=== PATIENT | male | born 1950 | race Caucasian/White ===

== ENCOUNTER 2020-11-19 20:00 | Inpatient (IN) | payer MEDICARE, MEDICAID, SELFPAY ==
[2020-11-19] VITALS (7 sets, daily range): BP systolic 123–177; BP diastolic 63–84; PULSE 111–140; RESP 18–25; TEMP 38.1–40.1; O2SAT 94–96; BMI 25.1
--- NOTE | ~2020-11-19 | XR_ITS ---
EXAMINATION: XR CHEST CLINICAL INFORMATION: Altered mental status. COMPARISON: Chest radiograph dated from 06/02/2019. TECHNIQUE: AP view of the chest was obtained. FINDINGS: Unchanged appearance of the cardiomediastinal silhouette. There are increased interstitial markings and multifocal patchy opacities, more prominent on the left lung. There is a small left-sided pleural effusion. No pneumothorax. No acute osseous findings. Chronic left-sided rib fractures. Redemonstration of calcified loose bodies overlying the right shoulder. XR/XR chest 1V IMPRESSION: Increased interstitial markings with superimposed patchy opacities bilaterally, more prominent in the left lung. These findings are worrisome for a multifocal infection. Correlate clinically and follow-up to ensure resolution. Small left pleural effusion.
--- NOTE | 2020-11-19 20:17 | ED.GENADULT ---
HPI - General Adult General Chief complaint: Fever Stated complaint: fever Time Seen by Provider: 11/19/20 20:17 Source: EMS and RN notes reviewed Mode of arrival: EMS History of Present Illness HPI narrative: Patient is 70 years old from [facility] with significant past medical history of hypertension, diabetes, traumatic brain injury, severe dysarthria, COPD, dysphagia, schizophrenia and osteoarthritis with history of recurrent aspiration pneumonia said from senior care this time for increased chills and a temperature of 100.7 at senior care was more confused and lethargic. When arrived patient was talking only few words more lethargic rectal temperature of 104 degrees Related Data Home Medications Medication Instructions Recorded Confirmed acetaminophen 500 mg tablet 500 mg PO Q6H PRN 11/19/20 11/19/20 acetaminophen 650 mg tablet 650 mg PO Q4H PRN 11/19/20 11/19/20 amlodipine 5 mg tablet 5 mg PO DAILY 11/19/20 11/19/20 chlorpromazine 25 mg tablet 25 mg PO BID 11/19/20 11/19/20 diazepam 2 mg tablet 2 mg PO BID 11/19/20 11/19/20 diazepam 5 mg tablet 5 mg PO BID 11/19/20 11/19/20 divalproex 500 mg tablet,extended 1,000 mg PO BID 11/19/20 11/19/20 release 24 hr ferrous sulfate 325 mg (65 mg 325 mg PO BID 11/19/20 11/19/20 iron) tablet folic acid 1 mg tablet 1 mg PO DAILY 11/19/20 11/19/20 gemfibrozil 600 mg tablet 600 mg PO BID 11/19/20 11/19/20 hydroxyzine HCl 25 mg tablet 25 mg PO QID 11/19/20 11/19/20 lactulose 60 ml QID 11/19/20 11/19/20 loperamide 2 mg capsule 2 mg PO Q6H PRN 11/19/20 11/19/20 lorazepam 0.5 ml IM QID PRN 11/19/20 11/19/20 lorazepam 1 mg tablet 1 mg PO TID PRN 11/19/20 11/19/20 metformin 1,000 mg tablet 1,000 mg PO BID 11/19/20 11/19/20 miconazole nitrate 2 % topical 1 appl TOPICAL BID 11/19/20 11/19/20 cream sennosides 8.6 mg tablet (senna) 8.6 mg PO DAILY PRN 11/19/20 11/19/20 thiamine mononitrate (vit B1) 100 100 mg PO DAILY 11/19/20 11/19/20 mg tablet (Vitamin B-1 (mononitrate)) ziprasidone HCl 60 mg capsule 60 mg PO BID 11/19/20 11/19/20 (Geodon) Allergies Allergy/AdvReac Type Severity Reaction Status Date / Time No Known Allergies Allergy Verified 11/19/20 20:31 [No Known Allergies*] Review of Systems Review of Systems: Yes Unobtainable due to [facility] Social History Social History Alcohol intake: never Patient Tobacco Use Status: Never used Tobacco Advance Directives: No Physical Exam Vital Signs: Vital Signs: Last Vital Signs Temp 100.5 F H 11/19/20 23:37 Pulse 104 H 11/20/20 00:28 Resp 18 11/20/20 00:28 BP 129/71 11/20/20 00:28 Pulse Ox 96 11/20/20 00:28 Body Mass Index 25.1 Appearance: Alert and awake. No acute distress. Eyes: No pallor/ icterus ENT: Pharynx normal. Oral Mucosa moist Neck: Normal inspection. Neck supple. CVS: Normal heart rate and rhythm. Pulses normal. Abdomen: Soft and nontender. Bowel sounds are present, no mass palpable, no CVA tenderness Skin: Skin warm and dry. Normal skin color. Normal skin turgor. Extremities: No lower extremity edema. No calf tenderness Neuro: Oriented X 1-2 speaking only 1 or 2 words difficult to understand. No motor deficit. No sensory deficit.No cerebellar signs , cranial nerves II-XII intact Medical Decision Making MDM Narrative Medical decision making narrative: Patient with recurrent pneumonia likely aspiration pneumonia , WBC count normal will start patient on Zosyn repeat COVID PCR Lab Data Lab results reviewed: Yes I reviewed the patient's lab results. Result diagrams: 11/19/20 20:47 11/19/20 20:47 Labs: Lab Results 11/19/20 11/19/20 11/19/20 Range/Units 20:24 20:37 20:37 WBC (4.8-10.8) X10*3/uL RBC (4.60-5.80) X10*6/uL Hgb (14.0-18.0) g/dl Hct (42-52) % MCV (80-98) fL MCH (27.0-33.0) pg MCHC (31.0-36.0) g/dl RDW (11.0-16.0) % Plt Count (160-400) X10*3/uL MPV (9.4-12.4) fL Immature Gran % (Auto) (0.0-0.4) % Neut % (Auto) (45-73) % Lymph % (Auto) (20-40) % [place] % (Auto) (2-11) % Eos % (Auto) (0-4) % Baso % (Auto) (0-2) % Lymph # (Auto) (1.2-4.9) X10*3/uL [place] # (Auto) (0.1-1.2) X10*3/uL Eos # (Auto) (0.0-0.4) X10*3/uL Baso # (Auto) (0.0-0.2) X10*3/uL Abs Immat Gran (auto) (0.00-0.03) X10*3/uL Absolute Neuts (auto) (2.0-8.3) X10*3/uL Absolute Nucleated RBC (0.0-0.012) X10*3/uL Nucleated RBC % (auto) (0.0-0.2) /100WBC Sodium (135-145) mmol/L Potassium (3.3-5.1) mmol/L Chloride (96-108) mmol/L Carbon Dioxide (22-29) mmol/L Anion Gap (12-20) BUN (9-16) mg/dL Creatinine (0.5-1.4) mg/dL Estim Creat Clear Calc Estimated GFR POC Glucose 225 H (60-115) mg/dL Random Glucose (60-115) mg/dL Lactic Acid (0.5-2.0) mmol/L Calcium (8.4-10.2) mg/dL Total Bilirubin (0.0-1.0) mg/dL AST (5-37) U/L ALT (0-40) U/L Alkaline Phosphatase (39-117) U/L Total Protein (6.5-8.0) g/dL Albumin (3.5-5.0) g/dL Lipase (8-78) U/L Urine Color YELLOW Urine Appearance CLEAR Urine pH 6.0 (5.0-8.0) Ur Specific [place] 1.010 (1.005-1.025) Urine Protein NEG (NEG-TRACE) MG/DL Urine Glucose (UA) NEG (NEG) MG/DL Urine Ketones 5 (NEG) MG/DL Urine Blood NEG (NEG) Urine Nitrite NEG (NEG) Ur Leukocyte Esterase NEG (NEG) COVID-19 (AN) Negative (Negative) COVID-19 Clin Com See Note 11/19/20 11/19/20 11/19/20 Range/Units 20:47 20:47 20:47 WBC 8.9 (4.8-10.8) X10*3/uL RBC 3.75 L (4.60-5.80) X10*6/uL Hgb 10.2 L (14.0-18.0) g/dl Hct 30.8 L (42-52) % MCV 82.1 (80-98) fL MCH 27.2 (27.0-33.0) pg MCHC 33.1 (31.0-36.0) g/dl RDW 13.6 (11.0-16.0) % Plt Count 233 (160-400) X10*3/uL MPV 10.6 (9.4-12.4) fL Immature Gran % (Auto) 0.3 (0.0-0.4) % Neut % (Auto) 82.8 H (45-73) % Lymph % (Auto) 7.6 L (20-40) % [place] % (Auto) 8.1 (2-11) % Eos % (Auto) 1.1 (0-4) % Baso % (Auto) 0.1 (0-2) % Lymph # (Auto) 0.7 L (1.2-4.9) X10*3/uL [place] # (Auto) 0.7 (0.1-1.2) X10*3/uL Eos # (Auto) 0.1 (0.0-0.4) X10*3/uL Baso # (Auto) 0.0 (0.0-0.2) X10*3/uL Abs Immat Gran (auto) 0.03 (0.00-0.03) X10*3/uL Absolute Neuts (auto) 7.4 (2.0-8.3) X10*3/uL Absolute Nucleated RBC 0.000 (0.0-0.012) X10*3/uL Nucleated RBC % (auto) 0.0 (0.0-0.2) /100WBC Sodium 140 (135-145) mmol/L Potassium 4.7 (3.3-5.1) mmol/L Chloride 106 (96-108) mmol/L Carbon Dioxide 25 (22-29) mmol/L Anion Gap 14 (12-20) BUN 14 (9-16) mg/dL Creatinine 1.21 (0.5-1.4) mg/dL Estim Creat Clear Calc 58.6 Estimated GFR 59 POC Glucose (60-115) mg/dL Random Glucose 228 H (60-115) mg/dL Lactic Acid 2.4 H* (0.5-2.0) mmol/L Calcium 8.9 (8.4-10.2) mg/dL Total Bilirubin 0.4 (0.0-1.0) mg/dL AST 10 (5-37) U/L ALT 6 (0-40) U/L Alkaline Phosphatase 149 H (39-117) U/L Total Protein 7.8 (6.5-8.0) g/dL Albumin 3.9 (3.5-5.0) g/dL Lipase 6 L (8-78) U/L Urine Color Urine Appearance Urine pH (5.0-8.0) Ur Specific [place] (1.005-1.025) Urine Protein (NEG-TRACE) MG/DL Urine Glucose (UA) (NEG) MG/DL Urine Ketones (NEG) MG/DL Urine Blood (NEG) Urine Nitrite (NEG) Ur Leukocyte Esterase (NEG) COVID-19 (AN) (Negative) COVID-19 Clin Com Discharge Plan Discharge Clinical Impression: Multifocal pneumonia Patient Disposition: Admitted As Inpatient
--- NOTE | 2020-11-19 20:26 | ECG_ITS ---
Test Reason : SEPTIC Blood Pressure : / mmHG Vent. Rate : 131 BPM Atrial Rate : 131 BPM P-R Int : 144 ms QRS Dur : 076 ms QT Int : 282 ms P-R-T Axes : 069 063 082 degrees QTc Int : 416 ms Sinus tachycardia RSR' or QR pattern in V1 suggests right ventricular conduction delay Nonspecific T wave abnormality Abnormal ECG When compared with ECG of 30-MAY-2019 10:45, Vent. rate has increased BY 44 BPM Nonspecific T wave abnormality, worse in Lateral leads Referred By: Manpreet Plaza Electronically Signed By:ROBBIE YEPEZ MD
[2020-11-19] MEDS: 0.9 % Sodium Chloride 3,000 ML 3000 ML IV (20:29)
[2020-11-19 20:44] LABS: Appearance Urine CLEAR; Color Urine YELLOW; Glucose Urine UA NEG (NEG); Leukocyte Esterase Urine NEG (NEG); Nitrite Urine NEG (NEG); Urine Blood NEG (NEG); Urine Ketones 5 MG/DL (NEG); Urine Protein NEG (NEG-TRACE)
[2020-11-19] MEDS: Piperacillin Sodium/Tazobactam 3.375 GM in 0.9 % Sodium Chloride 50 ML IV (20:53)
[2020-11-19] MEDS: Acetaminophen Supp 650 MG SUPP.RECT PR (20:53)
[2020-11-19 20:57] LABS: Glucose, Whole Blood 225 mg/dL (60-115)
[2020-11-19 20:58] LABS: MANUAL DIFF FLAG NO
[2020-11-19 20:59] LABS: COVID-19 Test Negative (Negative)
[2020-11-19 21:02] LABS: Basophils Percent Auto 0.1 % (0-2); Eosinophils Absolute Auto 0.1 X10*3/uL (0.0-0.4); Eosinophils Percent Auto 1.1 % (0-4); Hematocrit 30.8 % (42-52); Hemoglobin 10.2 g/dl (14.0-18.0); Imm Gran Abs Auto 0.03 X10*3/uL (0.00-0.03); Imm Gran Pct Auto 0.3 % (0.0-0.4); Lymphocytes Absolute Auto 0.7 X10*3/uL (1.2-4.9); Lymphocytes Percent Auto 7.6 % (20-40); Mean Corpuscular HGB Conc 33.1 g/dl (31.0-36.0); Mean Corpuscular Hemoglobin 27.2 pg (27.0-33.0); Mean Corpuscular Volume 82.1 fL (80-98); Mean Platelet Volume 10.6 fL (9.4-12.4); Monocytes Absolute Auto 0.7 X10*3/uL (0.1-1.2); Monocytes Percent Auto 8.1 % (2-11); Neutrophils Absolute Auto 7.4 X10*3/uL (2.0-8.3); Neutrophils Percent Auto 82.8 % (45-73); Platelet Count 233 X10*3/uL (160-400); Red Blood Count 3.75 X10*6/uL (4.60-5.80); Red Cell Distribution Width 13.6 % (11.0-16.0); White Blood Count 8.9 X10*3/uL (4.8-10.8)
[2020-11-19 21:13] LABS: Alanine Aminotransferase 6 U/L (0-40); Albumin Level 3.9 g/dL (3.5-5.0); Alkaline Phosphatase 149 U/L (39-117); Anion Gap 14 (12-20); Aspartate Amino Transferase 10 U/L (5-37); Bilirubin Total 0.4 mg/dL (0.0-1.0); Blood Urea Nitrogen 14 mg/dL (9-16); Calcium 8.9 mg/dL (8.4-10.2); Carbon Dioxide 25 mmol/L (22-29); Chloride 106 mmol/L (96-108); Creatinine Clr Calc Pharmacy 58.6; Estimated Glomerular Filt Rate 59; Glucose Random 228 mg/dL (60-115); Lipase 6 U/L (8-78); Potassium 4.7 mmol/L (3.3-5.1); Sodium 140 mmol/L (135-145); Total Protein 7.8 g/dL (6.5-8.0)
[2020-11-19 21:29] LABS: Lactic Acid 2.4 mmol/L (0.5-2.0)
--- NOTE | 2020-11-19 22:20 | PM.IMHP ---
History of Present Illness Date of Service: 11/19/20 Chief Complaint: Fever 70-year-old male with a past medical history of hypertension, hyperlipidemia, diabetes, history of traumatic brain injury, severe dysarthria, COPD, history of dysphagia, COPD, history of schizophrenia, osteoarthritis, recurrent admissions to the hospital for pneumonia; presented to the hospital today with a chief complaint of fever. Patient is a poor historian secondary to his baseline mild confusion /dysarthria. Spoke to the patient's RN Salvatore at [facility]-who reports that patient has been shaky tremulous and febrile today; slightly more confused than his baseline; hence sent him to the hospital for further evaluation. Reports that patient eats food okay-eats mechanical food and nectar thick liquids. Denies any cough or sputum production complains Denies patient complaining of any chest pain abdominal pain nausea vomiting diarrhea. Denies any urinary complaints. Reports that patient able to walk but usually in the bed; has mild chronic back pain. Denies any falls or head trauma. Review of all other systems is negative except mentioned above ER course: Per ER team patient chest x-ray showed possible multifocal pneumonia; febrile to 104 F; tachycardic; mildly tachypneic but saturating well on room air; given IV antibiotics. Admitted to the hospital for further management Past medical history: 1. Schizophrenia. 2. Diabetes mellitus. 3. Hypertension. 4. Hyperlipidemia. 5. History of TBI. 6. History of severe dysarthria. 7. COPD. 8. History of dysphasia. 9. Chronic anemia. 10. Multiple admissions for recurrent pneumonia. 11. Emphysema 12. Osteoarthritis 13. dysphagia 14. Anemia Past surgical history: Cataracts PMFSH Pertinent family history: reviewed; pt unable to provide. Social History Alcohol intake: never Patient Tobacco Use Status: Never used Tobacco Advance Directives: No Narrative: PMH:1. Schizophrenia. 2. Diabetes mellitus. 3. Hypertension. 4. Hyperlipidemia. 5. History of TBI. 6. History of severe dysarthria. 7. COPD. 8. History of dysphasia. 9. Chronic anemia. 10. Multiple admissions for recurrent pneumonia. 11. Emphysema 12. Osteoarthritis 13. dysphagia 14. Anemia Meds Allergies Allergy/AdvReac Type Severity Reaction Status Date / Time No Known Allergies Allergy Verified 11/19/20 20:31 [No Known Allergies*] Active Medications: Current Medications Sodium Chloride (0.9 % Sodium Chloride Flush 3 Ml Syringe) 3 ml IVFLUSH QSHIFT LINN Physical Exam Vital Signs and Narrative: Vital Signs: Last Vital Signs Temp 104.1 F H 11/19/20 20:38 Pulse 115 H 11/19/20 21:40 Resp 25 H 11/19/20 21:40 BP 153/69 H 11/19/20 21:40 Pulse Ox 95 11/19/20 21:40 Body Mass Index 25.1 Gen: Appears be in no acute distress; breathing comfortably. Noted to be tachycardic on monitor. HEENT: NCAT, Moist mucosa. Pulmonary: Course breath sounds, fair air entry CVS: Normal S1-S2 Abdomen: BS+, Soft, Nontender Extremities: Warm well perfused Neuro: Alert and awake. Results Labs CBC and Chem 7: 11/19/20 20:47 11/19/20 20:47 Labs: Laboratory Results - last 24 hr 11/19/20 11/19/20 11/19/20 20:24 20:37 20:37 MCV MCH MCHC RDW Plt Count MPV Immature Gran % (Auto) Neut % (Auto) Lymph % (Auto) [place] % (Auto) Eos % (Auto) Baso % (Auto) Lymph # (Auto) [place] # (Auto) Eos # (Auto) Baso # (Auto) Abs Immat Gran (auto) Absolute Neuts (auto) Absolute Nucleated RBC Nucleated RBC % (auto) Anion Gap Estim Creat Clear Calc Estimated GFR POC Glucose 225 H Random Glucose Lactic Acid Calcium Total Bilirubin AST ALT Alkaline Phosphatase Total Protein Albumin Lipase Urine Color YELLOW Urine Appearance CLEAR Urine pH 6.0 Ur Specific [place] 1.010 Urine Protein NEG Urine Glucose (UA) NEG Urine Ketones 5 Urine Blood NEG Urine Nitrite NEG Ur Leukocyte Esterase NEG COVID-19 (AN) Negative COVID-19 Clin Com See Note 11/19/20 11/19/20 11/19/20 20:47 20:47 20:47 MCV 82.1 MCH 27.2 MCHC 33.1 RDW 13.6 Plt Count 233 MPV 10.6 Immature Gran % (Auto) 0.3 Neut % (Auto) 82.8 H Lymph % (Auto) 7.6 L [place] % (Auto) 8.1 Eos % (Auto) 1.1 Baso % (Auto) 0.1 Lymph # (Auto) 0.7 L [place] # (Auto) 0.7 Eos # (Auto) 0.1 Baso # (Auto) 0.0 Abs Immat Gran (auto) 0.03 Absolute Neuts (auto) 7.4 Absolute Nucleated RBC 0.000 Nucleated RBC % (auto) 0.0 Anion Gap 14 Estim Creat Clear Calc 58.6 Estimated GFR 59 POC Glucose Random Glucose 228 H Lactic Acid 2.4 H* Calcium 8.9 Total Bilirubin 0.4 AST 10 ALT 6 Alkaline Phosphatase 149 H Total Protein 7.8 Albumin 3.9 Lipase 6 L Urine Color Urine Appearance Urine pH Ur Specific [place] Urine Protein Urine Glucose (UA) Urine Ketones Urine Blood Urine Nitrite Ur Leukocyte Esterase COVID-19 (AN) COVID-19 Clin Com Imaging Radiologist's Impressions: Impressions Chest X-Ray 11/19/20 20:26 IMPRESSION: Increased interstitial markings with superimposed patchy opacities bilaterally, more prominent in the left lung. These findings are worrisome for a multifocal infection. Correlate clinically and follow-up to ensure resolution. Small left pleural effusion. Assessment and Plan (1) Multifocal pneumonia: Status: Acute (2) Diabetes: Status: Acute (3) HTN (hypertension): Status: Acute 70-year-old male with a past medical history of hypertension, hyperlipidemia, diabetes, history of traumatic brain injury, severe dysarthria, COPD, history of dysphagia, COPD, history of schizophrenia, osteoarthritis, recurrent admissions to the hospital for pneumonia; presented to the hospital today with a chief complaint of fever. Noted to have pneumonia. Admitted for further management. Multifocal pneumonia: Patient had prior admissions for recurrent pneumonia. Patient has history of dysphagia-concern for aspiration. Continue IV vancomycin and Zosyn. NPO Speech and swallow eval ID consult for further Recommendations Aspiration precautions COVID-19 negative Supplemental oxygen p.r.n. DuoNebs p.r.n. Hypertension/hyperlipidemia: Continue home medications. Diabetes: Insulin sliding scale Dysphagia: Speech and swallow consult as mentioned. COPD: Stable. DuoNebs p.r.n. History of schizophrenia: Continue home medications. DVT prophylaxis: SCD boots Code status: Full code. Confirmed with the [facility] staff. I also called the patient's guardian deviated-unable to reach-left voice message. Quality Stroke Does the patient have a stroke diagnosis?: No VTE Prior VTE?: No VTE Risk Level:: Medical - moderate - high VTE Device Contraindication: N/A - Device Ordered VTE Drug Contraindication: Treatment Not Indicated
[2020-11-19 22:56] LABS: Reflex Lactate? Lactic Acid Added
[2020-11-19 23:23] LABS: Influenza A PCR NEGATIVE (Negative); Influenza B PCR NEGATIVE (Negative); Resp Syncy Virus RNA Qual PCR NEGATIVE (Negative); SARS COV2 PCR INHOUSE NEGATIVE (Negative)
[2020-11-19] MEDS: Ibuprofen Oral Susp 200 MG/10 ML ORAL.SUSP 600 MG PO (23:39)
[2020-11-19] MEDS: vancomycin HCL 1,250 MG in 0.9 % Sodium Chloride 250 ML 166.67 MG IV (23:43)
[2020-11-19] MEDS: 0.9 % Sodium Chloride 1,000 ML 75 ML IVCONT (23:44)
[2020-11-19 23:48] LABS: ~Lactic Acid-LAB USE ONLY 1.5 mmol/L (0.5-2.0)
[2020-11-20] VITALS (7 sets, daily range): BP systolic 129–165; BP diastolic 66–81; PULSE 70–104; RESP 13–18; TEMP 35.8–37.3; O2SAT 95–98; BMI 25.9
[2020-11-20] MEDS: 0.9 % Sodium Chloride Flush 3 ML SYRINGE IVFLUSH ×2 (00:26→07:50)
--- NOTE | 2020-11-20 00:59 | PC.NURSE ---
Pt remains alert and confused, per baseline mental status. Pt more calm then when he first came into ER. Pt follows commands without difficulties. Pt turned and positioned. Skin intact, buttock clean dry and intact. Rectal temps checked routinely and noted to be trending down to WNL, MD aware. Pt voiding multiple times this shift. 2 IV's remain intact. Heart rate noted to be trending down WNL, MD aware. BP remains WNL. Pt tolerated IV abx well. Pt denies pain, N/V. Pt ate soft bite sized diet per MD orders and tolerated well, no coughing or choking noted with swallowing. Pt received PO swallow test by RN this shift and tolerated well. Pt O2 sat remains WNL on room air. Pt resting asleep in stretcher at this time, will continue to monitor.
[2020-11-20] MEDS: Piperacillin Sodium/Tazobactam 3.375 GM in 0.9 % Sodium Chloride 50 ML IV ×4 (03:47→20:52)
--- NOTE | 2020-11-20 06:35 | PC.NURSE ---
Pt alert and confused, per baseline mental status. Pt cooperative but noted to be restless intermittently throughout shift. Pt remains afebrile at this time. 2 IV intact. Vitals stable. Pt tele monitor NSR. Pt voided multiple times throughout shift, pt cleaned and linens changed. Skin remains intact. Pt resting in stretcher without complaints at this time, will continue to monitor.
[2020-11-20 07:15] LABS: MANUAL DIFF FLAG NO
[2020-11-20 07:21] LABS: Basophils Percent Auto 0.3 % (0-2); Eosinophils Absolute Auto 0.1 X10*3/uL (0.0-0.4); Eosinophils Percent Auto 0.6 % (0-4); Hematocrit 32.6 % (42-52); Hemoglobin 10.7 g/dl (14.0-18.0); Imm Gran Abs Auto 0.05 X10*3/uL (0.00-0.03); Imm Gran Pct Auto 0.4 % (0.0-0.4); Lymphocytes Absolute Auto 1.6 X10*3/uL (1.2-4.9); Lymphocytes Percent Auto 14.1 % (20-40); Mean Corpuscular HGB Conc 32.8 g/dl (31.0-36.0); Mean Corpuscular Volume 82.1 fL (80-98); Mean Platelet Volume 10.6 fL (9.4-12.4); Monocytes Absolute Auto 0.8 X10*3/uL (0.1-1.2); Neutrophils Percent Auto 77.6 % (45-73); Platelet Count 249 X10*3/uL (160-400); Red Blood Count 3.97 X10*6/uL (4.60-5.80); Red Cell Distribution Width 13.7 % (11.0-16.0); White Blood Count 11.6 X10*3/uL (4.8-10.8)
[2020-11-20 07:32] LABS: Glucose, Whole Blood 115 mg/dL (60-115)
--- NOTE | 2020-11-20 07:42 | PC.NURSE ---
pt a/o x 3 with slight confusion. pt is npo until swallow eval.
--- NOTE | 2020-11-20 07:46 | PHA.MEDREC ---
Pharmacy Consult ? Medication Reconciliation Pharmacy has completed the medication reconciliation. There are no remarkable issues for provider's attention. Patient came from [facility] with a medication list. Eleanor Mahajan, NaD
--- NOTE | 2020-11-20 07:58 | PC.NURSE ---
complete bed change, [place] cath placed,.
[2020-11-20 08:17] LABS: Anion Gap 15 (12-20); Blood Urea Nitrogen 12 mg/dL (9-16); Carbon Dioxide 24 mmol/L (22-29); Chloride 110 mmol/L (96-108); Creatinine Clr Calc Pharmacy 81.5; Estimated Glomerular Filt Rate > 60; Glucose Random 121 mg/dL (60-115); Potassium 4.9 mmol/L (3.3-5.1); Sodium 144 mmol/L (135-145)
[2020-11-20] MEDS: diazePAM 2 MG TABLET PO (08:48)
[2020-11-20] MEDS: Divalproex Sodium ER 500 MG TAB.ER.24H 1000 MG PO (08:48)
[2020-11-20] MEDS: Thiamine HCL 100 MG TABLET PO (08:48)
[2020-11-20] MEDS: hydrOXYzine HCL 25 MG TABLET PO ×3 (08:48→17:42)
[2020-11-20] MEDS: diazePAM 5 MG TABLET PO (08:48)
[2020-11-20] MEDS: Folic Acid 1 MG TABLET PO (08:48)
[2020-11-20] MEDS: metFORMIN HCl 1,000 MG TABLET 1000 MG PO (08:48)
[2020-11-20] MEDS: Ziprasidone 60 MG CAPSULE PO (09:08)
[2020-11-20] MEDS: gemfibroziL 600 MG TABLET PO (09:08)
[2020-11-20] MEDS: chlorproMAZINE HCl 25 MG TABLET PO (09:08)
--- NOTE | 2020-11-20 09:53 | MHC.CM.PN ---
Addendum entered by Corrie Sampson 11/20/20 13:15: Patient received Pfizer Covid vaccines on 02/14 and 03/07. Original Note: Patient is admitted but boarding in the ER. Patient has a guardian. Spoke with patient's guardian, Navdeep Heredia via telephone at [phone]. Patient is a senior care care resident of [facility]. Anticiapte patient will return to facility via [facility] when medically stable. Copy of guardianship verified to be on file. PCP verified. IMM explained and sent to Navdeep via email at: [email or web address]. Continue to monitor for d/c needs.
--- NOTE | 2020-11-20 11:05 | PC.NURSE ---
enma Leonardo) from [facility] and was updated on pt's status.
--- NOTE | 2020-11-20 11:36 | PC.NURSE ---
public speaking instructor in room. pt incomprehensible in speech, difficult to understand. reporting leg pain, unable to further discuss.pt alert to person and place only.
[2020-11-20] MEDS: vancomycin HCL 750 MG in 0.9 % Sodium Chloride 250 ML 265 MG IV ×2 (11:38→23:08)
[2020-11-20 11:40] LABS: Glucose, Whole Blood 143 mg/dL (60-115)
--- NOTE | 2020-11-20 11:47 | PC.NURSE ---
pt has removed the [place] cath, he continues to use the urinal frequently.
[2020-11-20] MEDS: 0.9 % Sodium Chloride 1,000 ML 75 ML IVCONT (12:09)
--- NOTE | 2020-11-20 14:07 | PM.IMPN ---
Progress Note: A&P (1) Multifocal pneumonia: Status: Acute (2) Dysphagia: Status: Acute (3) Diabetes: Status: Acute (4) HTN (hypertension): Status: Acute (5) COPD (chronic obstructive pulmonary disease): Status: Acute Assessment and Plan: 70-year-old male with a past medical history of hypertension, hyperlipidemia, diabetes, history of traumatic brain injury, severe dysarthria, COPD, history of dysphagia, COPD, history of schizophrenia, osteoarthritis, recurrent admissions to the hospital for pneumonia; presented to the hospital today with a chief complaint of fever.? Noted to have pneumonia.? Admitted for further management. Multifocal pneumonia vs aspiration Continue IV vancomycin and Zosyn. Seen and evaluated by speech therapy with recommendation to continue NPO due to dysphagia, further followup as per speech therapy ID consult Aspiration precautions Supplemental oxygen p.r.n. DuoNebs p.r.n. Hypertension/hyperlipidemia. Continue home medications. Diabetes Insulin sliding scale Dysphagia Speech and swallow consult as mentioned. COPD Stable.? DuoNebs p.r.n. History of schizophrenia Continue home medications. DVT prophylaxis:? SCD boots Code status:? Full code.? Confirmed with the custodial staff.? I also called the patient's guardian deviated-unable to reach-left voice message. Attending Dr. Wang Subjective Subjective Date of Service: 11/20/20 Review of Systems Follow-up aspiration pneumonia Patient is sleeping Physical Exam Vital Signs: Vital Signs: Last Vital Signs Temp 98.5 F 11/20/20 07:30 Pulse 90 11/20/20 11:12 Resp 13 11/20/20 11:12 BP 136/70 11/20/20 11:12 Pulse Ox 98 11/20/20 07:30 Body Mass Index 25.1 Appearing in no acute distress lung sounds are clear to auscultation heart regular rate rhythm, clear S1, S2 positive bowel sounds, abdomen is soft, nontender neuro patient sleeping Objective Data Current Medications Acetaminophen (Acetaminophen 325 Mg Tablet) 650 mg PO Q6H PRN PRN Reason: Pain, Mild (Pain Scale 1-3) Chlorpromazine HCl (Chlorpromazine Hcl 25 Mg Tablet) 25 mg PO BID [facility] Last Admin: 11/20/20 09:08 Dose: 25 mg Documented by: Dextrose (Dextrose 50 % 25 Gm/50 Ml Vial) 25 gm IVPUSH Q15M PRN; Protocol PRN Reason: per Hypoglycemia Standing Ord. Diazepam (Diazepam 2 Mg Tablet) 2 mg PO BID [facility] Last Admin: 11/20/20 08:48 Dose: 2 mg Documented by: Diazepam (Diazepam 5 Mg Tablet) 5 mg PO BID [facility] Last Admin: 11/20/20 08:48 Dose: 5 mg Documented by: Divalproex Sodium (Divalproex Sodium Er 500 Mg Tab.Er.24h) 1,000 mg PO BID [facility] Last Admin: 11/20/20 08:48 Dose: 1,000 mg Documented by: Folic Acid (Folic Acid 1 Mg Tablet) 1 mg PO DAILY [facility] Last Admin: 11/20/20 08:48 Dose: 1 mg Documented by: Gemfibrozil (Gemfibrozil 600 Mg Tablet) 600 mg PO BID [facility] Last Admin: 11/20/20 09:08 Dose: 600 mg Documented by: Glucose (Glucose Gel 15 Gm Gel..Gram.) 15 gm PO Q15M PRN; Protocol PRN Reason: per Hypoglycemia Standing Ord. Hydroxyzine HCl (Hydroxyzine Hcl 25 Mg Tablet) 25 mg PO QID [facility] Last Admin: 11/20/20 08:48 Dose: 25 mg Documented by: Sodium Chloride (Ns) 1,000 mls @ 75 mls/hr IVCONT .[id number] [facility] Last Admin: 11/20/20 12:09 Dose: 75 mls/hr Documented by: Piperacillin Sod/Tazobactam (Sod 3.375 gm/ Sodium Chloride) 50 mls @ 100 mls/hr IV Q6H [facility] Last Infusion: 11/20/20 10:53 Dose: Infused Documented by: Vancomycin HCl 750 mg/ Sodium (Chloride) 265 mls @ 265 mls/hr IV Q12H [facility] Last Infusion: 11/20/20 12:43 Dose: Infused Documented by: Insulin Human Lispro (Insulin Lispro 100 Unit/Ml 3 Ml Vial) 0 unit SUBCUT QIDACHS [facility]; Protocol Last Admin: 11/20/20 11:48 Dose: Not Given Documented by: Lorazepam (Lorazepam 1 Mg Tablet) 1 mg PO TID PRN PRN Reason: Agitation Lorazepam (Lorazepam 2 Mg/Ml Vial) 0.5 mg IM QID PRN PRN Reason: Agitation Melatonin (Melatonin 3 Mg Tablet) 6 mg PO BEDTIME PRN PRN Reason: Insomnia Metformin HCl (Metformin Hcl 1,000 Mg Tablet) 1,000 mg PO BID [facility] Last Admin: 11/20/20 08:48 Dose: 1,000 mg Documented by: Pharmacy Consult (Consult Rx Vancomycin Dosing) 1 each MISCELLANE DAILY PRN PRN Reason: Consult order Pharmacy Consult (Consult Rx Perform Med Rec) 1 each MISCELLANE ONCE PRN PRN Reason: Consult order Senna (Sennosides 8.6 Mg Tablet) 17.2 mg PO BEDTIME PRN PRN Reason: Constipation Senna (Sennosides 8.6 Mg Tablet) 8.6 mg PO DAILY PRN PRN Reason: Constipation Sodium Chloride (0.9 % Sodium Chloride Flush 3 Ml Syringe) 3 ml IVFLUSH QSHIFT [facility] Last Admin: 11/20/20 07:50 Dose: 3 ml Documented by: Thiamine HCl (Thiamine Hcl 100 Mg Tablet) 100 mg PO DAILY [facility] Last Admin: 11/20/20 08:48 Dose: 100 mg Documented by: Ziprasidone (Ziprasidone 60 Mg Capsule) 60 mg PO BID [facility] Last Admin: 11/20/20 09:08 Dose: 60 mg Documented by: Labs CBC & Chem 7: 11/20/20 07:11 11/20/20 07:11 Labs: Laboratory Results - last 24 hr 11/19/20 11/19/20 11/19/20 20:24 20:37 20:37 MCV MCH MCHC RDW Plt Count MPV Immature Gran % (Auto) Neut % (Auto) Lymph % (Auto) [place] % (Auto) Eos % (Auto) Baso % (Auto) Lymph # (Auto) [place] # (Auto) Eos # (Auto) Baso # (Auto) Abs Immat Gran (auto) Absolute Neuts (auto) Absolute Nucleated RBC Nucleated RBC % (auto) Anion Gap Estim Creat Clear Calc Estimated GFR POC Glucose 225 H Random Glucose Lactic Acid Lactic Acid Fup @ 2Hr Calcium Total Bilirubin AST ALT Alkaline Phosphatase Total Protein Albumin Lipase Urine Color YELLOW Urine Appearance CLEAR Urine pH 6.0 Ur Specific [place] 1.010 Urine Protein NEG Urine Glucose (UA) NEG Urine Ketones 5 Urine Blood NEG Urine Nitrite NEG Ur Leukocyte Esterase NEG Coronavirus (PCR) COVID-19 (AN) Negative COVID-19 Clin Com See Note Influenza Type A (PCR) Influenza Type B (PCR) RSV RNA Qual (PCR) 11/19/20 11/19/20 11/19/20 20:47 20:47 20:47 MCV 82.1 MCH 27.2 MCHC 33.1 RDW 13.6 Plt Count 233 MPV 10.6 Immature Gran % (Auto) 0.3 Neut % (Auto) 82.8 H Lymph % (Auto) 7.6 L [place] % (Auto) 8.1 Eos % (Auto) 1.1 Baso % (Auto) 0.1 Lymph # (Auto) 0.7 L [place] # (Auto) 0.7 Eos # (Auto) 0.1 Baso # (Auto) 0.0 Abs Immat Gran (auto) 0.03 Absolute Neuts (auto) 7.4 Absolute Nucleated RBC 0.000 Nucleated RBC % (auto) 0.0 Anion Gap 14 Estim Creat Clear Calc 58.6 Estimated GFR 59 POC Glucose Random Glucose 228 H Lactic Acid 2.4 H* Lactic Acid Fup @ 2Hr Calcium 8.9 Total Bilirubin 0.4 AST 10 ALT 6 Alkaline Phosphatase 149 H Total Protein 7.8 Albumin 3.9 Lipase 6 L Urine Color Urine Appearance Urine pH Ur Specific [place] Urine Protein Urine Glucose (UA) Urine Ketones Urine Blood Urine Nitrite Ur Leukocyte Esterase Coronavirus (PCR) COVID-19 (AN) COVID-19 Clin Com Influenza Type A (PCR) Influenza Type B (PCR) RSV RNA Qual (PCR) 11/19/20 11/19/20 11/20/20 22:28 23:29 07:11 MCV 82.1 MCH 27.0 MCHC 32.8 RDW 13.7 Plt Count 249 MPV 10.6 Immature Gran % (Auto) 0.4 Neut % (Auto) 77.6 H Lymph % (Auto) 14.1 L [place] % (Auto) 7.0 Eos % (Auto) 0.6 Baso % (Auto) 0.3 Lymph # (Auto) 1.6 [place] # (Auto) 0.8 Eos # (Auto) 0.1 Baso # (Auto) 0.0 Abs Immat Gran (auto) 0.05 H Absolute Neuts (auto) 9.0 H Absolute Nucleated RBC 0.000 Nucleated RBC % (auto) 0.0 Anion Gap Estim Creat Clear Calc Estimated GFR POC Glucose Random Glucose Lactic Acid Lactic Acid Fup @ 2Hr 1.5 Calcium Total Bilirubin AST ALT Alkaline Phosphatase Total Protein Albumin Lipase Urine Color Urine Appearance Urine pH Ur Specific [place] Urine Protein Urine Glucose (UA) Urine Ketones Urine Blood Urine Nitrite Ur Leukocyte Esterase Coronavirus (PCR) NEGATIVE COVID-19 (AN) COVID-19 Clin Com Influenza Type A (PCR) NEGATIVE Influenza Type B (PCR) NEGATIVE RSV RNA Qual (PCR) NEGATIVE 11/20/20 11/20/20 11/20/20 07:11 07:26 11:32 MCV MCH MCHC RDW Plt Count MPV Immature Gran % (Auto) Neut % (Auto) Lymph % (Auto) [place] % (Auto) Eos % (Auto) Baso % (Auto) Lymph # (Auto) [place] # (Auto) Eos # (Auto) Baso # (Auto) Abs Immat Gran (auto) Absolute Neuts (auto) Absolute Nucleated RBC Nucleated RBC % (auto) Anion Gap 15 Estim Creat Clear Calc 81.5 Estimated GFR > 60 POC Glucose 115 143 H Random Glucose 121 H D Lactic Acid Lactic Acid Fup @ 2Hr Calcium 8.0 L D Total Bilirubin AST ALT Alkaline Phosphatase Total Protein Albumin Lipase Urine Color Urine Appearance Urine pH Ur Specific [place] Urine Protein Urine Glucose (UA) Urine Ketones Urine Blood Urine Nitrite Ur Leukocyte Esterase Coronavirus (PCR) COVID-19 (AN) COVID-19 Clin Com Influenza Type A (PCR) Influenza Type B (PCR) RSV RNA Qual (PCR) Quality Stroke Does the patient have a stroke diagnosis?: No VTE Prior VTE?: No VTE Risk Level:: Medical - moderate - high VTE Device Contraindication: N/A - Device Ordered VTE Drug Contraindication: Treatment Not Indicated
--- NOTE | 2020-11-20 15:49 | MHC.SLORD ---
Speech Language Pathology Order Status: CONDUCTOR/BRAKEMAN attempted PO trials this morning, but patient could not wake for CONDUCTOR/BRAKEMAN. CONDUCTOR/BRAKEMAN returned this afternoon and completed bedside dysphagia evaluation. Patient was sleeping when CONDUCTOR/BRAKEMAN arrived and awoke to verbal stimuli and sternal rub. Patient began speaking, but was very unintelligible. He was provided with directions in both Amharic and Swedish, but did not follow commands. Patient opened his eyes and appeared alert when given his first bite of pudding. Mild oral holding and prolonged bolus manipulation. As patient appeared to move and manipulate bolus, he displayed weak labial seal and air escape. Upon palpation, laryngeal elevation was incomplete and swallow was delayed. Patient was presented with dry teaspoon to elicit open mouth. >50% of bolus remained on tongue. Patient was cued to swallow again, but at this point he fell asleep despite cues. Patient awoke again to sternal rub and swallowed remaining bolus with significant cues. Patient then demonstrated complete clearance. When given trace amount water by teaspoon, note wet gurgly throat sounds. Non productive throat clear. PO trials discontinued for patient safety due to lethargic state and overt s/s of aspiration. Due to lethargic state and overt s/s of aspiration, recommend continue NPO HOLD TRAY at this time pending improvement in level of alertness. Patient has extensive history of dysphagia. He was seen by CONDUCTOR/BRAKEMAN during previous admissions in 2017 and 2018. Patient's baseline diet at [facility] is GROUND/MECH ALTERED (NDD2) solids and NECTAR THICK liquids, CRUSHED pills. CONDUCTOR/BRAKEMAN will return later this afternoon as schedule allows or tomorrow morning to re-evaluate.
[2020-11-20 17:25] LABS: Glucose, Whole Blood 99 mg/dL (60-115)
[2020-11-20 19:02] LABS: Glucose, Whole Blood 112 mg/dL (60-115)
[2020-11-20 20:50] LABS: Glucose, Whole Blood 119 mg/dL (60-115)
[2020-11-21 00:04] VITALS: BP 127/66; PULSE 88; RESP 18; TEMP 36.4; O2SAT 94
[2020-11-21] MEDS: 0.9 % Sodium Chloride 1,000 ML 75 ML IVCONT (02:12)
[2020-11-21] MEDS: Piperacillin Sodium/Tazobactam 3.375 GM in 0.9 % Sodium Chloride 50 ML IV ×3 (02:12→14:37)
[2020-11-21 02:54] VITALS: BP 138/85; PULSE 93; RESP 18; TEMP 36.4; O2SAT 98
[2020-11-21 07:19] VITALS: BP 164/76; PULSE 94; RESP 18; TEMP 36.3; O2SAT 96
[2020-11-21 07:27] LABS: Creatinine Clr Calc Pharmacy 93.3; Estimated Glomerular Filt Rate > 60
[2020-11-21 07:43] LABS: Glucose, Whole Blood 104 mg/dL (60-115)
[2020-11-21 10:37] LABS: Vancomycin Trough 11.1 mcg/mL (10.0-20.0)
[2020-11-21] MEDS: 0.9 % Sodium Chloride Flush 3 ML SYRINGE IVFLUSH (10:57)
[2020-11-21] MEDS: diazePAM 2 MG TABLET PO (11:03)
[2020-11-21] MEDS: diazePAM 5 MG TABLET PO (11:03)
[2020-11-21] MEDS: hydrOXYzine HCL 25 MG TABLET PO ×2 (11:03→14:37)
[2020-11-21] MEDS: Acetaminophen 325 MG TABLET 650 MG PO (11:04)
[2020-11-21] MEDS: Folic Acid 1 MG TABLET PO (11:11)
[2020-11-21] MEDS: Ziprasidone 60 MG CAPSULE PO (11:11)
[2020-11-21] MEDS: Thiamine HCL 100 MG TABLET PO (11:11)
[2020-11-21] MEDS: gemfibroziL 600 MG TABLET PO (11:12)
[2020-11-21] MEDS: Divalproex Sodium ER 500 MG TAB.ER.24H 1000 MG PO (11:12)
[2020-11-21] MEDS: chlorproMAZINE HCl 25 MG TABLET PO (11:12)
[2020-11-21] MEDS: metFORMIN HCl 1,000 MG TABLET 1000 MG PO (11:12)
[2020-11-21 11:19] VITALS: BP 171/88; PULSE 97; RESP 18; TEMP 36.6; O2SAT 97
[2020-11-21 11:24] LABS: Glucose, Whole Blood 116 mg/dL (60-115)
[2020-11-21] MEDS: vancomycin HCL 1,500 MG in 0.9 % Sodium Chloride 500 ML 333.33 MG IV (11:49)
--- NOTE | 2020-11-21 12:37 | MHC.SL.SWA ---
Speech Pathologist Impression: Risk of Aspiration Oralpharyngeal Dysphagia Risk of Aspiration Due to: Reduced Cognition Dysphasia Diet Status: Upgrade Liquid Consistency and Strategies for Safe Swallow: Liquid Intake Recommendation: [place] Thick Liquid Intake Strategies: Small Sips No Straws Solid Food Consistency: Dietary Recommendations: Grnd/Mech Altered (NDD2) Medications crushed in puree Additional Modifications to Solid Foods: Pt requires strict aspiration precautions and 1:1 assist/supervision with feeding to ensure safety. The following strategies are recommended: - upright for all PO intake - small, single cup sips (NO STRAWS) - alternate solids and liquids - small, single bites - oral cavity checks to ensure bolus clearance - Oral Medication Intake: Crushed with Puree Compensatory Strategies and Precautions to be Taken for Safe Swallow: Sitting Upright (90 deg) No Straw Liquids from Cup Small Bites and Sips Alternate Liquids/Solids Rate of Ingestion Change Oral Check Supervision While Eating and Drinking for Safe Swallow: Total Supervision (1:1) Foods to Avoid: dry, crunchy, sticky foods Swallowing Recommended Treatments: Compens. Strategy Educat. Recommendation for Speech: Inpatient Speech Therapy Frequency/Duration: 1x/day during pt's hospitalization Claim Representative Clinican/Clinical Fellow: No Supervisory Statement: I have reviewed and agree with the student/clinical fellow's documentation: N/A Speech Language Pathologist: Chery Chauhan M.A., CCC-CR[employer] AND [employer]IL SCIENTIST
[2020-11-21] MEDS: Lidocaine 4 % Patch ADH..PATCH 2 PATCH TRANSDERMA (12:39)
[2020-11-21 12:40] VITALS: BP 171/88; PULSE 97
[2020-11-21] MEDS: amLODIPine Besylate 5 MG TABLET PO (12:40)
--- NOTE | 2020-11-21 12:51 | W.PM.IDCN ---
History of Present Illness Data of Consult Service Date: 11/21/20 Requesting physician: Nati Celis Primary Care Provider: DO AMBROSE Boone Reason for consult: fever He presents from [facility] with fever and lethargy. He has COPD and multiple aspiration events. He has chills and temperature to 100.7 CXR shows multifocal infiltrates Review of Systems Review of Systems: Yes all other systems are reviewed and are negative [facility] Past Medical History Medical History (Updated 11/29/20 @ 00:03 by Juliano Lowe) COPD (chronic obstructive pulmonary disease) Diabetes HTN (hypertension) Family History Family history: reviewed and not pertinent Social History Social History Household Members: Other Housing: Residential Do you presently have visiting nurse or other home services: No Unable to assess alcohol history related to: Unable to respond Alcohol intake: never Patient Tobacco Use Status: Never used Tobacco service: No Current occupational status: disabled Meds Allergies Allergy/AdvReac Type Severity Reaction Status Date / Time No Known Allergies Allergy Verified 11/19/20 20:31 [No Known Allergies*] Active Medications: Current Medications Acetaminophen (Acetaminophen 325 Mg Tablet) 650 mg PO Q6H PRN PRN Reason: Pain, Mild (Pain Scale 1-3) Last Admin: 11/21/20 11:04 Dose: 650 mg Documented by: Amlodipine Besylate (Amlodipine Besylate 5 Mg Tablet) 5 mg PO DAILY [facility]; Protocol Last Admin: 11/21/20 12:40 Dose: 5 mg Documented by: Chlorpromazine HCl (Chlorpromazine Hcl 25 Mg Tablet) 25 mg PO BID [facility] Last Admin: 11/21/20 11:12 Dose: 25 mg Documented by: Dextrose (Dextrose 50 % 25 Gm/50 Ml Vial) 25 gm IVPUSH Q15M PRN; Protocol PRN Reason: per Hypoglycemia Standing Ord. Diazepam (Diazepam 2 Mg Tablet) 2 mg PO BID [facility] Last Admin: 11/21/20 11:03 Dose: 2 mg Documented by: Diazepam (Diazepam 5 Mg Tablet) 5 mg PO BID [facility] Last Admin: 11/21/20 11:03 Dose: 5 mg Documented by: Divalproex Sodium (Divalproex Sodium Er 500 Mg Tab.Er.24h) 1,000 mg PO BID [facility] Last Admin: 11/21/20 11:12 Dose: 1,000 mg Documented by: Folic Acid (Folic Acid 1 Mg Tablet) 1 mg PO DAILY [facility] Last Admin: 11/21/20 11:11 Dose: 1 mg Documented by: Gemfibrozil (Gemfibrozil 600 Mg Tablet) 600 mg PO BID [facility] Last Admin: 11/21/20 11:12 Dose: 600 mg Documented by: Glucose (Glucose Gel 15 Gm Gel..Gram.) 15 gm PO Q15M PRN; Protocol PRN Reason: per Hypoglycemia Standing Ord. Hydroxyzine HCl (Hydroxyzine Hcl 25 Mg Tablet) 25 mg PO QID [facility] Last Admin: 11/21/20 11:03 Dose: 25 mg Documented by: Sodium Chloride (Ns) 1,000 mls @ 75 mls/hr IVCONT .[id number] [facility] Last Admin: 11/21/20 02:12 Dose: 75 mls/hr Documented by: Piperacillin Sod/Tazobactam (Sod 3.375 gm/ Sodium Chloride) 50 mls @ 100 mls/hr IV Q6H [facility] Last Infusion: 11/21/20 11:45 Dose: Infused Documented by: Vancomycin HCl 1,500 mg/ (Sodium Chloride) 500 mls @ 333.333 mls/hr IV Q24H [facility] Last Admin: 11/21/20 11:49 Dose: 333.33 mls/hr Documented by: Insulin Human Lispro (Insulin Lispro 100 Unit/Ml 3 Ml Vial) 0 unit SUBCUT QIDACHS [facility]; Protocol Last Admin: 11/21/20 11:52 Dose: Not Given Documented by: Lidocaine (Lidocaine 4 % Patch Adh..Patch) 2 patch TRANSDERMA DAILY [facility]; Protocol Last Admin: 11/21/20 12:39 Dose: 2 patch Documented by: Lorazepam (Lorazepam 1 Mg Tablet) 1 mg PO TID PRN PRN Reason: Agitation Lorazepam (Lorazepam 2 Mg/Ml Vial) 0.5 mg IM QID PRN PRN Reason: Agitation Melatonin (Melatonin 3 Mg Tablet) 6 mg PO BEDTIME PRN PRN Reason: Insomnia Metformin HCl (Metformin Hcl 1,000 Mg Tablet) 1,000 mg PO BID [facility] Last Admin: 11/21/20 11:12 Dose: 1,000 mg Documented by: Pharmacy Consult (Consult Rx Vancomycin Dosing) 1 each MISCELLANE DAILY PRN PRN Reason: Consult order Pharmacy Consult (Consult Rx Perform Med Rec) 1 each MISCELLANE ONCE PRN PRN Reason: Consult order Senna (Sennosides 8.6 Mg Tablet) 17.2 mg PO BEDTIME PRN PRN Reason: Constipation Senna (Sennosides 8.6 Mg Tablet) 8.6 mg PO DAILY PRN PRN Reason: Constipation Sodium Chloride (0.9 % Sodium Chloride Flush 3 Ml Syringe) 3 ml IVFLUSH QSHIFT [facility] Last Admin: 11/21/20 10:57 Dose: 3 ml Documented by: Thiamine HCl (Thiamine Hcl 100 Mg Tablet) 100 mg PO DAILY [facility] Last Admin: 11/21/20 11:11 Dose: 100 mg Documented by: Ziprasidone (Ziprasidone 60 Mg Capsule) 60 mg PO BID [facility] Last Admin: 11/21/20 11:11 Dose: 60 mg Documented by: Home Medications Medication Instructions Recorded Confirmed Last Taken Type acetaminophen 500 mg tablet 500 mg PO TID 11/19/20 11/20/20 Unknown History acetaminophen 650 mg tablet 650 mg PO Q4H PRN 11/19/20 11/19/20 Unknown History amlodipine 5 mg tablet 5 mg PO DAILY 11/19/20 11/19/20 Unknown History chlorpromazine 25 mg tablet 25 mg PO BID 11/19/20 11/19/20 Unknown History diazepam 2 mg tablet 2 mg PO BID 11/19/20 11/19/20 Unknown History diazepam 5 mg tablet 5 mg PO BID 11/19/20 11/19/20 Unknown History divalproex 500 mg tablet,extended 1,000 mg PO BID 11/19/20 11/19/20 Unknown History release 24 hr ferrous sulfate 325 mg (65 mg 325 mg PO BID 11/19/20 11/19/20 Unknown History iron) tablet folic acid 1 mg tablet 1 mg PO DAILY 11/19/20 11/19/20 Unknown History gemfibrozil 600 mg tablet 600 mg PO BID 11/19/20 11/19/20 Unknown History hydroxyzine HCl 25 mg tablet 25 mg PO TID 11/19/20 11/20/20 Unknown History loperamide 2 mg capsule 2 mg PO Q6H PRN 11/19/20 11/19/20 Unknown History lorazepam 1 mg tablet 1 mg PO TID PRN 11/19/20 11/19/20 Unknown History metformin 1,000 mg tablet 1,000 mg PO BID 11/19/20 11/19/20 Unknown History miconazole nitrate 2 % topical 1 appl TOPICAL BID 11/19/20 11/19/20 Unknown History cream sennosides 8.6 mg tablet (senna) 8.6 mg PO DAILY PRN 11/19/20 11/19/20 Unknown History thiamine mononitrate (vit B1) 100 100 mg PO DAILY 11/19/20 11/19/20 Unknown History mg tablet (Vitamin B-1 (mononitrate)) ziprasidone HCl 60 mg capsule 60 mg PO BID 11/19/20 11/19/20 Unknown History (Geodon) insulin aspart U-100 100 unit/mL 1 sliding scale dose SUBCUT TIDAC 11/20/20 11/20/20 Unknown History (3 mL) subcutaneous pen (Novolog Flexpen U-100 Insulin aspart) lactulose 10 gram/15 mL oral 60 ml PO TID 11/20/20 11/20/20 Unknown History solution lorazepam 2 mg/mL injection 1 mg IV Q8H PRN 11/20/20 11/20/20 Unknown History solution Physical Exam Vital Signs: Vital Signs: Last Vital Signs Temp 97.8 F 11/21/20 11:19 Pulse 97 11/21/20 12:40 Resp 18 11/21/20 11:19 BP 171/88 H 11/21/20 12:40 Pulse Ox 97 11/21/20 11:19 Body Mass Index 25.9 Const: General: cooperative Eyes: General: appearance normal, both eyes and all related structures Resp: Effort & Inspection: normal respiratory effort and other (rhonchi left base) Cardio: Rate: regular rate Rhythm: regular rhythm GI: Palpation (GI): Soft to palpation and nontender Skin: General skin exam: no rashes or lesions noted Psych: Speech and movement: Pressured speech present Affect: Animated affect present Results Labs CBC & Chem 7: 11/20/20 07:11 11/21/20 06:50 Labs: BMP 11/21/20 06:50 Creatinine 0.76 Microbiology Microbiology Results: Microbiology 11/19/20 20:48 Blood - Venous Blood Culture - Preliminary No growth after 24 hours. 11/19/20 20:47 Blood - Venous Blood Culture - Preliminary No growth after 24 hours. Assessment and Plan (1) Dysphagia: Status: Acute (2) COPD (chronic obstructive pulmonary disease): He likely has aspiration pneumonia He has gram negative gram positive Less likely atypical Possible MRSA (3) Multifocal pneumonia: Status: Acute Would continue Vancomycin and Zosyn If not improving add Doxycycline Duration likely 5 d IV and follow swallowing study Nares for MRSA and stop Vancomycin if negative
--- NOTE | 2020-11-21 13:02 | PM.DS ---
DS: Providers Provider Date of Service: 11/21/20 Date of admission: 11/19/20 22:16 Primary care physician: Celio Lora DO Consults: 11/19/20 22:17 Consult to Infectious Diseases Routine Consulting Provider: Bobbi Fields Reason for consultation: PNA Attending physician on discharge: Eric Wang Discharging clinician: Nati Celis DS: Diagnosis Discharge Diagnosis (1) Aspiration pneumonia: Status: Acute (2) Dysphagia: Status: Acute DS: Summary Hospital Course Hospital Course: HP as per admitting provider 70-year-old male with a past medical history of hypertension, hyperlipidemia, diabetes, history of traumatic brain injury, severe dysarthria, COPD, history of dysphagia, COPD, history of schizophrenia, osteoarthritis, recurrent admissions to the hospital for pneumonia; presented to the hospital today with a chief complaint of fever. Patient is a poor historian secondary to his baseline mild confusion /dysarthria. Spoke to the patient's RN Salvatore at [facility]-who reports that patient has been shaky tremulous and febrile today; slightly more confused than his baseline; hence sent him to the hospital for further evaluation. Reports that patient eats food okay-eats mechanical food and nectar thick liquids. Denies any cough or sputum production complains. Denies patient complaining of any chest pain abdominal pain nausea vomiting diarrhea.? Denies any urinary complaints. Reports that patient able to walk but usually in the bed; has mild chronic back pain.? Denies any falls or head trauma. Review of all other systems is negative except mentioned above ER course: Per ER team patient chest x-ray showed possible multifocal pneumonia; febrile to 104 F; tachycardic; mildly tachypneic but saturating well on room air; given IV antibiotics.? Admitted to the hospital for further management . Aspiration pneumonia. Secondary to dysphagia. Treated with IV vancomycin and Zosyn. Seen and evaluated by speech therapy with recommendation for ground/mechanical soft diet, aspiration precautions. Did not require supplemental oxygen and no hypoxia. Will send back to [facility] with 10 days of augmentin. Cultures negative after 24 hours. Time Spent with Patient Time attestation: Total time spent providing and/or coordinating discharge services: Discharge coordination time: Greater than 30 minutes Quality: Stroke Does the patient have a stroke diagnosis?: No Physical Exam Vital Signs: Vital Signs: Last Vital Signs Temp 97.8 F 11/21/20 11:19 Pulse 97 11/21/20 12:40 Resp 18 11/21/20 11:19 BP 171/88 H 11/21/20 12:40 Pulse Ox 97 11/21/20 11:19 Body Mass Index 25.9 Appearing in no acute distress head is normocephalic atraumatic eyes pupils are PERRLA sclera is anicteric mouth throat mucous membranes are intact and moist neck is supple no lymphadenopathy, no JVD noted lung sounds are clear to auscultation heart regular rate rhythm, clear S1, S2 positive bowel sounds, abdomen is soft, nontender neuro patient is alert, speech difficulties chornic DS: Data Data Completed and Pending Labs on day of discharge: Laboratory Results - last 24 hr 11/20/20 11/20/20 11/20/20 17:19 18:57 20:47 Creatinine Estim Creat Clear Calc Estimated GFR POC Glucose 99 112 119 H Vancomycin Trough 11/21/20 11/21/20 11/21/20 06:50 07:18 09:55 Creatinine 0.76 Estim Creat Clear Calc 93.3 Estimated GFR > 60 POC Glucose 104 Vancomycin Trough 11.1 11/21/20 11:19 Creatinine Estim Creat Clear Calc Estimated GFR POC Glucose 116 H Vancomycin Trough Preliminary micro results at discharge 11/19/20 20:48 Blood Culture - Preliminary Blood - Venous No growth after 24 hours. 11/19/20 20:47 Blood Culture - Preliminary Blood - Venous No growth after 24 hours. Discharge Plan Discharge Anticipated Discharge Date/Time: 11/21/20 12:53 Patient Disposition: Home, Self-Care Discharge Diagnosis: Aspiration pneumonia Referrals: Celio Lora DO [Primary Care Provider] - 1 Week Discharge Medications: New amoxicillin-pot clavulanate [Augmentin] 875-125 mg tablet 1 tab PO BID Qty: 20 RF: 0 Continued amlodipine 5 mg Tablet 5 mg PO DAILY RF: 0 acetaminophen 650 mg Tablet 650 mg PO Q4H PRN (Reason: fever) RF: 0 acetaminophen 500 mg Tablet 500 mg PO TID RF: 0 chlorpromazine 25 mg Tablet 25 mg PO BID RF: 0 diazepam 2 mg Tablet 2 mg PO BID RF: 0 gemfibrozil 600 mg Tablet 600 mg PO BID RF: 0 ferrous sulfate 325 mg (65 mg iron) Tablet 325 mg PO BID RF: 0 divalproex 500 mg Tablet Extended Release 24 Hr 1,000 mg PO BID RF: 0 folic acid 1 mg Tablet 1 mg PO DAILY RF: 0 ziprasidone HCl [Geodon] 60 mg Capsule 60 mg PO BID RF: 0 diazepam 5 mg Tablet 5 mg PO BID RF: 0 loperamide 2 mg Capsule 2 mg PO Q6H PRN (Reason: loose stool) RF: 0 hydroxyzine HCl 25 mg Tablet 25 mg PO TID RF: 0 sennosides [senna] 8.6 mg Tablet 8.6 mg PO DAILY PRN (Reason: Constipation) RF: 0 miconazole nitrate 2 % Cream 1 appl TOPICAL BID RF: 0 metformin 1,000 mg Tablet 1,000 mg PO BID RF: 0 lorazepam 1 mg Tablet 1 mg PO TID PRN (Reason: Agitation) RF: 0 thiamine mononitrate (vit B1) [Vitamin B-1 (mononitrate)] 100 mg Tablet 100 mg PO DAILY RF: 0 lorazepam 2 mg/mL Solution 1 mg IV Q8H PRN (Reason: extreme agitation) RF: 0 insulin aspart U-100 [Novolog Flexpen U-100 Insulin] 100 unit/mL (3 mL) Insulin Pen 1 sliding scale dose SUBCUT TIDAC RF: 0 lactulose 10 gram/15 mL Solution 60 ml PO TID RF: 0 Discharge Orders: Discharge Order (Routine); Ordered 11/21/20 Ordered By: Nati Celis Diet: other Activity on Discharge: As tolerated Stand Alone Forms: Patient Portal Discharge page Care Plan Goals: Complete antibiotic treatment Health Concerns: Aspiration pneumonia Plan of Treatment: Recommendations as per speech therapy: Liquid Consistency and Strategies for Safe Swallow: Liquid Intake Recommendation: [place] Thick Liquid Intake Strategies: Small Sips No Straws Solid Food Consistency: Dietary Recommendations: Grnd/Mech Altered (NDD2) Medications crushed in puree Additional Modifications to Solid Foods: Pt requires strict aspiration precautions and 1:1 assist/supervision with feeding to ensure safety. ?The following strategies are recommended: - upright for all PO intake - small, single cup sips (NO STRAWS) - alternate solids and liquids - small, single bites - oral cavity checks to ensure bolus clearance Oral Medication Intake: Crushed with Puree Compensatory Strategies and Precautions to be Taken for Safe Swallow: Sitting Upright (90 deg)No Straw Liquids from Cup Small Bites and Sips Alternate Liquids/Solids Rate of Ingestion Change Oral Check Supervision While Eating and Drinking for Safe Swallow: Total Supervision (1:1) Foods to Avoid: dry, crunchy, sticky foods Swallowing Recommended Treatments: Compens. Strategy Educat. Assessment: See discharge summary
--- NOTE | 2020-11-21 13:29 | MHC.CM.PN ---
Patient has been medically cleared to return to [facility] today at 4PM, via [facility]. Guardian/Navdeep Salazar @ [phone] has been made aware of today's dc. Last IMM addressed yesterday.
[2020-11-21 15:21] VITALS: BP 124/81; PULSE 90; RESP 18; TEMP 37; O2SAT 98
[2020-11-22 08:21] LABS: MRSA Nasal PCR NEGATIVE (Negative); SA Nasal PCR NEGATIVE (Negative)
== END 2020-11-21 16:45 | disposition skilled nursing facility (03) | DRG 179 ==
LOC: HO.ED 20:27 → HO.EDOVER 22:31 → HO.IMC 11-20 17:41
PROVIDERS: Admitting Provider Hospitalist; Emergency Provider Internal Medicine; PCP Hospitalist; Visit Provider Nurse Practitioner Acute Care
DX: J69.0 Pneumonitis due to inhalation of food and vomit (principal); F20.9 Schizophrenia, unspecified; J44.9 Chronic obstructive pulmonary disease, unspecified; Z87.820 Personal history of traumatic brain injury; Z20.822 Contact with and (suspected) exposure to COVID-19; Z79.4 Long term (current) use of insulin; Z79.899 Other long term (current) drug therapy
CPT/HCPCS: 0241U; 36415; 71045; 80048; 80053; 80202; 81003; 82565; 82947; 83605; 83690; 85025; 87040; 87635; 87640; 87641; 92610; 93005; 99285; J2543; J3370